=== PATIENT | male | born 1995 | race African-American/Black ===

== ENCOUNTER → 2017-03-12 | Day surgery (SDC) | payer BC ==
[~2017-03-12] MED LIST: BACITRACIN IM FOR SOLN 50,000 UNIT VIAL ONE; BUPIVACAINE HCL PF 0.75% 30 ML VIAL ONE; EPINEPHrine HCL (1:1000) 30 MG/30 ML VIAL ONE; IBUP-232 PO; LACTATED RINGER'S 1000 ML INJ 1,000 ML ONE; LIDOCAINE 1.5%/EPINEPHrine 1:200,000 PF SOLN 30 ML AMP NERV BLOCK ONE; MIDAZOLAM HCL 5 MG/ML VIAL (1 ML) ONE; ONDANSETRON HCL 4 MG/2 ML VIAL IV PUSH ONE; PROPOFOL 500 MG/50 ML BTL IV ONE; SODIUM CHLORIDE 0.9% 20 ML VIAL ONE; ceFAZolin 2 GM PREMIX 50 ML ONE; ceFAZolin INJ 1,000 MG VIAL ONE
--- NOTE | 2017-03-13 16:50 | MP ---
cc: MIKHAIL SMITH DATE OF SURGERY 03/12/17 PREOPERATIVE DIAGNOSIS Left knee anterior cruciate ligament tear, left knee medial and lateral meniscal tear. POSTOPERATIVE DIAGNOSIS Left knee anterior cruciate ligament tear, left knee medial and lateral meniscal tear. PROCEDURE 1. Left knee arthroscopic anterior cruciate ligament allograft reconstruction 2. Left knee arthroscopic partial medial and lateral meniscectomy. SURGEON Dr. Adams Smith LINUX ADMINISTRATOR [place] ANESTHESIA General with a femoral nerve block. ESTIMATED BLOOD LOSS Less than 50 mL. TOURNIQUET TIME Zero minutes. COMPLICATIONS None IMPLANTS USED Arthrex JUSTIFICATION A 22-year-old male who injured the left knee. He has had pain, swelling and instability symptoms. Clinical exam as well as MRI confirmed the above-named findings. Patient counseled as to risks, benefits and alternatives of the above named proposed surgical procedure. He did wish to proceed with surgery. PROCEDURE IN DETAIL A written consent obtained. The patient was identified, taken to the operating room. placed supine on the operating table. General anesthesia was administered as well as 2 grams of IV Ancef. Left thigh carefully placed in well-padded leg daniels. Left lower tree prepped and draped using isopropyl alcohol, Hibiclens solution and DuraPrep solution. After time-out was performed, a standard medial and lateral parapatellar arthroscopic portal was established. The patellofemoral joint revealed no significant chondromalacia. The medial compartment revealed a complex bucket-handle type tear of the medial meniscus with a large free unstable fragment. An arthroscopic biter followed by an arthroscopic shaver was introduced into the medial compartment to perform partial meniscectomy. The meniscal rim was probed and noted to be stable after meniscectomy. There was some mild focal grade 2 chondromalacia in line with the meniscal tear. The intercondylar notch revealed a complete destruction of the anterior cruciate ligament. The lateral compartment revealed a radial tear mid bilateral meniscus extending into the anterior posterior horns. An arthroscopic shaver was introduced into the lateral compartment to perform a partial lateral meniscectomy. The meniscal rim was noted to be stable after meniscectomy. No significant chondromalacia of the lateral compartment was noted. A shaver was used to perform a debridement of the torn anterior cruciate ligament stump. An arthroscopic bur was used to perform a notchplasty. An Arthrex retro cutting tibial guide centered within the footprint of the [place] ACL, was placed. A guide pin was used to capture the 10 mm drill bit and the tibial tunnel was retro cut 10 mm in diameter. An Arthrex 7-mm [id number] medial portal guide was placed along the lateral femoral condyle with the knee hyperflexed. The guide pin was drilled exiting lateral femoral condyle. Subsequently a low profile 10 mm cannulated reamer was then drilled through a depth of 25 mm. The shaver was used to clean soft tissue and bone debris from within the knee joint. At this point, a fiber link suture was then shuttled from the medial portal exiting lateral medial condyle and subsequently exiting the tibial tunnel. On the back table, the posterior tibialis tendon allograft was thawed in antibiotic solution. A #2 FiberWire whipstitch placed in proximal and distal portion of the graft and the graft was fashioned to a full 10 mm. Artur Roy, physician assistant golf course superintendent certified, was instrumental in fashioning the graft. An Arthrex tightrope suture anchor was placed in the midportion the graft. Once prepared, the sutures from the tightrope anchor were then placed through the eyelet of the fiber link suture and pulled from the tibial tunnel exiting the lateral femoral cortex. The tightrope button was then pulled exiting the lateral femoral cortex from the femoral tunnel. The graft was then pulled and well seated into the femoral tunnel. The leg was taken through a full range of motion with no evidence of pistoning or impingement with the leg held in near full extension and the graft tensioned. A guide wire was placed along the anterior border of the graft and an Arthrex 9 x 20 mm bioabsorbable interference delta screw was used for fixation of tibial side. Intraoperative Sharyn examination was performed which was negative. At the conclusion of procedure, the arthroscope portal was closed with 3-0 Prolene suture. Sterile dressing was applied. The patient tolerated procedure well with no intraoperative complications noted. Artur Roy, physician assistant golf course superintendent certified, was present during entire procedure to include patient positioning and the procedure itself. The medical necessity of a physician assistant golf course superintendent was indicated in this case due to the complexity of the procedure. He assisted with appropriate manipulation of the leg and also manipulation of the camera. He assisted with drilling of tunnels, implantation of graft and also implantation of internal fixation devices for purpose of reconstruction. He also assisted with preparation of the graft for purpose of reconstruction. MD BEATA Tellez/ /9:01 AM /4:31 PM
== END | disposition home or self-care (01) ==
LOC: ESDC 06:03
PROVIDERS: ATTEND Orthopaedic Surgery Sports Medicine
DX: S83.512A Sprain of anterior cruciate ligament of left knee, initial encounter (principal); S83.212A Bucket-handle tear of medial meniscus, current injury, left knee, initial encounter; S83.282A Other tear of lateral meniscus, current injury, left knee, initial encounter
CPT/HCPCS: 01400; 01991; 29880; 29888; 64447; C1713; J0171; J0690; J2250; J2405; J7120